=== PATIENT | male | born 2000 | race Two or more races ===

== ENCOUNTER 2024-01-22 16:44 | Emergency (ER) | payer MEDICAID ==
[~2024-01-22] VITALS: Ht 182.9 cm; Wt 70.0 kg
[2024-01-22 16:49] VITALS: O2SAT 97
[2024-01-22] MEDS: ACETAMINOPHEN 325MG TABLET PO ONE (20:42)
[2024-01-22] MEDS: CYCLOBENZAPRINE 10MG TABLET PO ONE (20:42)
[2024-01-22] MEDS ORDERED: CYCL10TA21 MT (21:28)
[2024-01-22 21:48] VITALS: BP 111/78; PULSE 89; RESP 16; TEMP 36.78072; O2SAT 98
== END 2024-01-22 21:49 | disposition home or self-care (01) ==
LOC: ER 16:44
DX: S20.219A Contusion of unspecified front wall of thorax, initial encounter (principal); M54.50 Low back pain, unspecified; V49.9XXA Car occupant (driver) (passenger) injured in unspecified traffic accident, initial encounter; Y93.89 Activity, other specified; Y92.89 Other specified places as the place of occurrence of the external cause; Y99.8 Other external cause status
CPT/HCPCS: 71045; 72131; 99284